=== PATIENT | male | born 1980 | race Two or more races ===

== ENCOUNTER 2021-04-18 12:20 | Inpatient (IN) | payer BC, OTHER ==
[~2021-04-18] VITALS: Ht 170.2 cm; Wt 85.0 kg
[2021-04-18] MEDS ORDERED: ACETAMINOPHEN 500 MG TAB PO ONE (13:00)
[2021-04-18] MEDS ORDERED: AZITHROMYCIN 500MG/ 250ML 250 ML IV ONE (13:15)
[2021-04-18] MEDS ORDERED: cefTRIAXone 1GM/50ML D5W 50 ML IV ONE (13:15)
[2021-04-18] MEDS ORDERED: DexAMETHasone SOD PHOS 10MG/1ML VIAL INJ IV ONE (13:15)
[2021-04-18 14:38] LABS: Hematocrit 47.2 % (41.0-53.0); Hemoglobin 16.6 g/dL (13.5-17.5); Mean Corpuscular Hemoglobin 33.7 pg (28.0-32.0); Mean Corpuscular Hgb Conc. 35.2 g/dL (32.0-36.0); Mean Corpuscular Volume 95.8 fL (80.0-100.0); Red Blood Cells 4.93 10^6/uL (4.5-5.90); Red Cell Distribution Width 13.4 % (11.8-14.3)
[2021-04-18 14:53] LABS: Basophils % (manual) 0 (0.0-2.0); Blast Cells 0; Eosinophils % (manual) 0 (0-7); Metamyelocytes % 0; Myelocytes % 0; Promyelocytes % 0; Reactive Lymphocytes 0
[2021-04-18 15:02] LABS: BUN/Creatinine Ratio 9.8; Band Neutrophils % (manual) 1; Calcium 8.5 mg/dL (8.5-10.1); Lymphocytes % (manual) 21 (10.0-50.0); Monocytes % (manual) 6 (0-12); Potassium 3.5 mmol/L (3.5-5.1)
[2021-04-18 15:04] LABS: Bilirubin, Total 0.6 mg/dL (0.2-1.0); Total Protein 8.5 g/dL (6.4-8.2)
[2021-04-19] MEDS ORDERED: MORPHINE SULFATE INJECTION 2 MG/ML SYRG IV PRN (05:00)
[2021-04-19] MEDS ORDERED: ONDANSETRON HCL 4 MG/2 ML VIAL IV PRN (05:00)
[2021-04-19] MEDS ORDERED: ACETAMINOPHEN 325 MG TAB PO PRN (05:00)
[2021-04-19] MEDS ORDERED: NITROGLYCERIN 0.4 MG SL TAB SL PRN (05:00)
[2021-04-19] MEDS ORDERED: REMDESIVIR PER PHARMACY 0 ML IV SCH (07:15)
[2021-04-19] MEDS: DexAMETHasone SOD PHOS 10MG/1ML VIAL INJ IV SCH (11:36)
[2021-04-19] MEDS: cefTRIAXone 1GM/50ML D5W 50 ML IV SCH (11:36)
[2021-04-19] MEDS: ASCORBIC ACID 1,000 MG TAB PO SCH (11:37)
[2021-04-19] MEDS: ZINC SULFATE 220mg CAP or TAB PO SCH (11:37)
[2021-04-19] MEDS: CHOLECALCIFEROL (VITD3) 2,000 UNIT CAP/TAB PO SCH (11:37)
[2021-04-19] MEDS: PANTOPRAZOLE 40 MG TAB PO SCH (11:37)
[2021-04-19] MEDS: ENOXAPARIN SOD 40 MG/0.4 ML SYRINGE SC SCH (11:38)
[2021-04-19] MEDS: AZITHROMYCIN 500MG/ 250ML 250 ML IV SCH (12:10)
[2021-04-19] MEDS ORDERED: IOHEXOL 350 MG/ML 100ML IJ ONE (13:06)
[2021-04-19] MEDS ORDERED: guaiFENesin-DM 100/10mg/5ml SYR PO PRN (13:15)
[2021-04-19] MEDS ORDERED: REMDESIVIR 200 MG in NS 210ml LOADING DOSE ADULT IV ONE (15:00)
[2021-04-20 03:15] VITALS: BP 112/76
[2021-04-20 05:23] LABS: Basophils # (auto) 0 10 ^3/uL (0-0.2); Eosinophils # (auto) 0 10 ^3/uL (0-0.8); Lymphocytes # (auto) 1.1 10 ^3/uL (0.4-5.4); Monocytes # (auto) 0.5 10 ^3/uL (0-1.3); Neutrophils # (auto) 3.6 10 ^3/uL (1.6-8.6); Nucleated Red Blood Cells % 0.2 %; White Blood Cell 5.3 10^3/uL (4.4-10.8)
[2021-04-20 05:32] LABS: Basophils % (auto) 0.2 % (0.0-2.0); Hematocrit 42.3 % (41.0-53.0); Hemoglobin 15.4 g/dL (13.5-17.5); Lymphocytes % (auto) 21.6 % (10.0-50.0); Mean Corpuscular Hemoglobin 34.5 pg (28.0-32.0); Mean Corpuscular Hgb Conc. 36.3 g/dL (32.0-36.0); Monocytes % (auto) 9.6 % (0.0-12.0); Neutrophils % (auto) 68.6 % (37.0-80.0); Red Blood Cells 4.45 10^6/uL (4.5-5.90); Red Cell Distribution Width 13.3 % (11.8-14.3)
[2021-04-20 05:50] LABS: Potassium 3.9 mmol/L (3.5-5.1)
[2021-04-20 06:15] LABS: Albumin 2.7 g/dL (3.4-5.0); BUN/Creatinine Ratio 18.9; Bilirubin, Total 0.5 mg/dL (0.2-1.0); Calcium 8.6 mg/dL (8.5-10.1); Total Protein 7.8 g/dL (6.4-8.2)
[2021-04-20] MEDS: cefTRIAXone 1GM/50ML D5W 50 ML IV SCH (09:31)
[2021-04-20] MEDS: DexAMETHasone SOD PHOS 10MG/1ML VIAL INJ IV SCH (09:32)
[2021-04-20] MEDS: ZINC SULFATE 220mg CAP or TAB PO SCH (09:33)
[2021-04-20] MEDS: FUROSEMIDE 20 MG/2 ML VIAL IV SCH (09:33)
[2021-04-20] MEDS: POTASSIUM CHL 10 Meq TABLET PO SCH (09:33)
[2021-04-20] MEDS: ASCORBIC ACID 1,000 MG TAB PO SCH (09:34)
[2021-04-20] MEDS: PANTOPRAZOLE 40 MG TAB PO SCH (09:34)
[2021-04-20] MEDS: ENOXAPARIN SOD 40 MG/0.4 ML SYRINGE SC SCH ×2 (09:34→21:14)
[2021-04-20] MEDS: CHOLECALCIFEROL (VITD3) 2,000 UNIT CAP/TAB PO SCH (09:34)
[2021-04-20] MEDS: IVERMECTIN 3 MG TAB PO SCH (09:35)
[2021-04-20] MEDS: AZITHROMYCIN 500MG/ 250ML 250 ML IV SCH (09:58)
[2021-04-20] MEDS: ALBUTEROL SULF HFA 90MCG INH 200DOSE IN PRN ×2 (11:48→19:31)
[2021-04-20 14:04] LABS: Alcohol, Urine < 3.0 mg/dL (0-10); Amphetamine Screen, Urine NEGATIVE (NEGATIVE); Barbiturate Scree,Urine NEGATIVE (NEGATIVE); Benzodiazephine Screen, Urine NEGATIVE (NEGATIVE); Cannabinoid Screen, Urine NEGATIVE (NEGATIVE); Cocaine Screen, Urine NEGATIVE (NEGATIVE); Opiate Scree,Urine NEGATIVE (NEGATIVE); Phencyclidine Screen, Urine NEGATIVE (NEGATIVE)
[2021-04-20] MEDS: REMDESIVIR 100mg 100 MG in SODIUM CHL 0.9% 230 ML IV SCH (15:18)
[2021-04-20 17:55] VITALS: BP 140/95
[2021-04-20 17:57] VITALS: BP 140/95
[2021-04-20 22:00] VITALS: BP 135/81
[2021-04-21 05:00] VITALS: BP 138/86
[2021-04-21 06:05] LABS: Albumin 2.6 g/dL (3.4-5.0); Calcium 8.6 mg/dL (8.5-10.1); Potassium 4.6 mmol/L (3.5-5.1)
[2021-04-21 06:10] LABS: BUN/Creatinine Ratio 24.5; Bilirubin, Total 0.7 mg/dL (0.2-1.0); Total Protein 7.6 g/dL (6.4-8.2)
[2021-04-21 09:23] VITALS: BP 123/78
[2021-04-21] MEDS: DexAMETHasone SOD PHOS 10MG/1ML VIAL INJ IV SCH (09:50)
[2021-04-21] MEDS: cefTRIAXone 1GM/50ML D5W 50 ML IV SCH (09:50)
[2021-04-21] MEDS: POTASSIUM CHL 10 Meq TABLET PO SCH (09:51)
[2021-04-21] MEDS: ASCORBIC ACID 1,000 MG TAB PO SCH (09:51)
[2021-04-21] MEDS: IVERMECTIN 3 MG TAB PO SCH (09:51)
[2021-04-21] MEDS: ZINC SULFATE 220mg CAP or TAB PO SCH (09:51)
[2021-04-21] MEDS: FUROSEMIDE 20 MG/2 ML VIAL IV SCH (09:51)
[2021-04-21] MEDS: PANTOPRAZOLE 40 MG TAB PO SCH (09:51)
[2021-04-21] MEDS: CHOLECALCIFEROL (VITD3) 2,000 UNIT CAP/TAB PO SCH (09:52)
[2021-04-21] MEDS: ENOXAPARIN SOD 40 MG/0.4 ML SYRINGE SC SCH ×2 (09:52→21:47)
[2021-04-21] MEDS: ALBUTEROL SULF HFA 90MCG INH 200DOSE IN PRN ×2 (11:37→21:28)
[2021-04-21] MEDS: AZITHROMYCIN 500MG/ 250ML 250 ML IV SCH (11:54)
[2021-04-21 12:49] VITALS: BP 105/65
[2021-04-21] MEDS: REMDESIVIR 100mg 100 MG in SODIUM CHL 0.9% 230 ML IV SCH (15:56)
[2021-04-21] MEDS ORDERED: DOCUSATE SOD 100 MG CAP PO PRN (16:30)
[2021-04-21 17:27] VITALS: BP 116/83
[2021-04-21 22:00] VITALS: BP 120/76
[2021-04-22 05:00] VITALS: BP 124/79
[2021-04-22 05:52] LABS: Potassium 3.6 mmol/L (3.5-5.1)
[2021-04-22 06:02] LABS: Albumin 2.7 g/dL (3.4-5.0); BUN/Creatinine Ratio 17.9; Bilirubin, Total 0.6 mg/dL (0.2-1.0); Calcium 8.9 mg/dL (8.5-10.1); Total Protein 7.2 g/dL (6.4-8.2)
[2021-04-22] MEDS: ALBUTEROL SULF HFA 90MCG INH 200DOSE IN PRN ×2 (07:34→21:36)
[2021-04-22 08:00] VITALS: BP 124/70
[2021-04-22 08:35] VITALS: BP 123/83
[2021-04-22] MEDS: IVERMECTIN 3 MG TAB PO SCH (10:10)
[2021-04-22] MEDS: ENOXAPARIN SOD 40 MG/0.4 ML SYRINGE SC SCH ×2 (10:10→21:21)
[2021-04-22] MEDS: POTASSIUM CHL 10 Meq TABLET PO SCH (10:10)
[2021-04-22] MEDS: ASCORBIC ACID 1,000 MG TAB PO SCH (10:10)
[2021-04-22] MEDS: PANTOPRAZOLE 40 MG TAB PO SCH (10:11)
[2021-04-22] MEDS: FUROSEMIDE 20 MG/2 ML VIAL IV SCH (10:11)
[2021-04-22] MEDS: cefTRIAXone 1GM/50ML D5W 50 ML IV SCH (10:11)
[2021-04-22] MEDS: ZINC SULFATE 220mg CAP or TAB PO SCH (10:11)
[2021-04-22] MEDS: CHOLECALCIFEROL (VITD3) 2,000 UNIT CAP/TAB PO SCH (10:11)
[2021-04-22] MEDS: DexAMETHasone SOD PHOS 10MG/1ML VIAL INJ IV SCH (10:16)
[2021-04-22] MEDS: AZITHROMYCIN 500MG/ 250ML 250 ML IV SCH (11:15)
[2021-04-22 12:32] VITALS: BP 119/79
[2021-04-22] MEDS: REMDESIVIR 100mg 100 MG in SODIUM CHL 0.9% 230 ML IV SCH (15:26)
[2021-04-22 17:00] VITALS: BP 115/75
[2021-04-22 22:00] VITALS: BP 112/67
[2021-04-22 22:17] LABS: Urine Bacteria NONE SEEN /hpf (None Seen); Urine Blood Negative /uL (Negative); Urine Mucus FEW (None Seen); Urine Specific Gravity 1.028 (1.001-1.035); Urine WBC <1 /hpf (0 - 3)
[2021-04-23 04:30] VITALS: BP 117/80
[2021-04-23] MEDS: ALBUTEROL SULF HFA 90MCG INH 200DOSE IN PRN ×2 (06:28→22:17)
[2021-04-23 07:23] LABS: Basophils # (auto) 0 10 ^3/uL (0-0.2); Eosinophils # (auto) 0.1 10 ^3/uL (0-0.8); Hemoglobin 15.5 g/dL (13.5-17.5); White Blood Cell 5.3 10^3/uL (4.4-10.8)
[2021-04-23 07:26] LABS: Basophils % (auto) 0.4 % (0.0-2.0); Hematocrit 43.9 % (41.0-53.0); Lymphocytes % (auto) 37.6 % (10.0-50.0); Mean Corpuscular Hemoglobin 34.3 pg (28.0-32.0); Mean Corpuscular Hgb Conc. 35.4 g/dL (32.0-36.0); Mean Corpuscular Volume 96.9 fL (80.0-100.0); Monocytes # (auto) 0.5 10 ^3/uL (0-1.3); Neutrophils # (auto) 2.7 10 ^3/uL (1.6-8.6); Nucleated Red Blood Cells % 0.2 %; Red Blood Cells 4.53 10^6/uL (4.5-5.90); Red Cell Distribution Width 13.3 % (11.8-14.3)
[2021-04-23 07:39] LABS: Albumin 2.9 g/dL (3.4-5.0); Potassium 3.8 mmol/L (3.5-5.1)
[2021-04-23 07:44] LABS: BUN/Creatinine Ratio 15.2; Bilirubin, Total 0.8 mg/dL (0.2-1.0); Total Protein 7.7 g/dL (6.4-8.2)
[2021-04-23 08:00] VITALS: BP 126/78
[2021-04-23 09:00] VITALS: BP 126/78
[2021-04-23] MEDS: FUROSEMIDE 20 MG/2 ML VIAL IV SCH (10:05)
[2021-04-23] MEDS: cefTRIAXone 1GM/50ML D5W 50 ML IV SCH (10:05)
[2021-04-23] MEDS: DexAMETHasone SOD PHOS 10MG/1ML VIAL INJ IV SCH (10:05)
[2021-04-23] MEDS: ASCORBIC ACID 1,000 MG TAB PO SCH (10:05)
[2021-04-23] MEDS: AZITHROMYCIN 500MG/ 250ML 250 ML IV SCH (10:05)
[2021-04-23] MEDS: IVERMECTIN 3 MG TAB PO SCH (10:06)
[2021-04-23] MEDS: ZINC SULFATE 220mg CAP or TAB PO SCH (10:06)
[2021-04-23] MEDS: PANTOPRAZOLE 40 MG TAB PO SCH (10:06)
[2021-04-23] MEDS: POTASSIUM CHL 10 Meq TABLET PO SCH (10:06)
[2021-04-23] MEDS: ENOXAPARIN SOD 40 MG/0.4 ML SYRINGE SC SCH ×2 (10:06→22:41)
[2021-04-23] MEDS: CHOLECALCIFEROL (VITD3) 2,000 UNIT CAP/TAB PO SCH (10:06)
[2021-04-23 13:00] VITALS: BP 109/70
[2021-04-23] MEDS: REMDESIVIR 100mg 100 MG in SODIUM CHL 0.9% 230 ML IV SCH (14:56)
[2021-04-23 17:00] VITALS: BP 120/77
[2021-04-23 22:00] VITALS: BP 135/88
[2021-04-24 04:30] VITALS: BP 116/73
[2021-04-24] MEDS: ALBUTEROL SULF HFA 90MCG INH 200DOSE IN PRN (06:44)
[2021-04-24 08:00] VITALS: BP 130/80
[2021-04-24 09:00] VITALS: BP 130/80
[2021-04-24] MEDS ORDERED: DEXT1SYP9 PO (09:12)
[2021-04-24] MEDS ORDERED: ZINC220T6 PO (09:12)
[2021-04-24] MEDS ORDERED: ASCO10003 PO (09:12)
[2021-04-24] MEDS ORDERED: CHOL1CAP47 PO (09:12)
[2021-04-24] MEDS ORDERED: DEX4T PO (09:12)
[2021-04-24] MEDS ORDERED: PANT40T PO (09:12)
[2021-04-24] MEDS ORDERED: ALBUAER3 IN (09:12)
[2021-04-24] MEDS: cefTRIAXone 1GM/50ML D5W 50 ML IV SCH (09:41)
[2021-04-24] MEDS: ASCORBIC ACID 1,000 MG TAB PO SCH (09:42)
[2021-04-24] MEDS: PANTOPRAZOLE 40 MG TAB PO SCH (09:42)
[2021-04-24] MEDS: IVERMECTIN 3 MG TAB PO SCH (09:42)
[2021-04-24] MEDS: POTASSIUM CHL 10 Meq TABLET PO SCH (09:42)
[2021-04-24] MEDS: CHOLECALCIFEROL (VITD3) 2,000 UNIT CAP/TAB PO SCH (09:42)
[2021-04-24] MEDS: ZINC SULFATE 220mg CAP or TAB PO SCH (09:42)
[2021-04-24] MEDS: DexAMETHasone SOD PHOS 10MG/1ML VIAL INJ IV SCH (09:42)
[2021-04-24] MEDS: FUROSEMIDE 20 MG/2 ML VIAL IV SCH (09:43)
[2021-04-24] MEDS: ENOXAPARIN SOD 40 MG/0.4 ML SYRINGE SC SCH (10:00)
[2021-04-24] MEDS: AZITHROMYCIN 500MG/ 250ML 250 ML IV SCH (10:45)
[2021-04-24 13:00] VITALS: BP 113/77
[2021-04-24 15:35] VITALS: BP 119/79
== END 2021-04-24 16:00 | disposition home or self-care (01) | DRG 177 ==
LOC: ER 12:20 → TELE 04-19 04:53 → TELE-EAST 04-20 17:21 → EAST 04-20 17:57
PROVIDERS: ADMIT Nurse Practitioner; ATTEND Internal Medicine
PROC: XW033E5 Introduction of Remdesivir Anti-infective into Peripheral Vein, Percutaneous Approach, New Technology Group 5 (ICD-10-PCS; 2021-04-19)
PROC: 05HC33Z Insertion of Infusion Device into Left Basilic Vein, Percutaneous Approach (ICD-10-PCS; principal; 2021-04-20)
DX: U07.1 COVID-19 (principal); J12.82 Pneumonia due to coronavirus disease 2019; J96.01 Acute respiratory failure with hypoxia; E44.0 Moderate protein-calorie malnutrition; Z68.29 Body mass index [BMI] 29.0-29.9, adult; D89.839 Cytokine release syndrome, grade unspecified
CPT/HCPCS: 36415; 36600; 71045; 71275; 80053; 80307; 81001; 82728; 82805; 83615; 83735; 85007; 85025; 85027; 85379; 86141; 87426; 93005; 93970; 94640; 96365; G0378; J0696; J1100